=== PATIENT | male | born 1950 | race Caucasian/White ===

== ENCOUNTER 2020-01-15 15:46 | Emergency (ER) | payer OTHER ==
[2020-01-15 15:53] VITALS: RESP 16; TEMP 97.9
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
[2020-01-15 17:31] VITALS: BP 138/78; PULSE 81
== END 2020-01-15 17:31 | disposition home or self-care (01) ==
LOC: EC 15:46
DX: Z04.1 Encounter for examination and observation following transport accident (principal)
CPT/HCPCS: 72170; 73562; 73610; 71045; 99284; L1830